=== PATIENT | female | born 1960 | race Caucasian/White ===

== ENCOUNTER → 2019-01-25 | Outpatient (CLI) | payer OTHER ==
[2019-01-26 11:08] LABS: Candida species (DNA Probe) Positive (NEGATIVE); G. vaginalis (DNA Probe) Negative (NEGATIVE); T. vaginalis (DNA Probe) Negative (NEGATIVE)
== END | disposition home or self-care (01) ==
LOC: LAB 15:54 → LAB SHORT 15:54
PROVIDERS: Obstetrics & Gynecology
DX: N76.0 Acute vaginitis (principal)
CPT/HCPCS: 87480; 87510; 87660

== ENCOUNTER → 2019-01-27 | Outpatient (CLI) | payer OTHER ==
[2019-01-27 15:44] LABS: U Benzodiazapine Screen DETECTED
[2019-01-27 15:45] LABS: U Amphetamine Screen Not Detected; U Barbituate Screen Not Detected; U Buprenorphine Screen Not Detected; U Cannabinoids Screen DETECTED; U Cocaine Screen Not Detected; U Methadone Screen Not Detected; U Methamphetamine Screen Not Detected; U Opiates Screen Not Detected; U Oxycodone Screen Not Detected; U Phencyclidine Screen Not Detected; U Propoxyphene Screen Not Detected
== END | disposition home or self-care (01) ==
LOC: LAB 13:55 → LAB SHORT 13:55
PROVIDERS: Registered Nurse Psychiatric/Mental Health
DX: Z51.81 Encounter for therapeutic drug level monitoring (principal); F31.32 Bipolar disorder, current episode depressed, moderate; Z79.899 Other long term (current) drug therapy

== ENCOUNTER 2019-07-28 10:17 | Emergency (ER) | payer OTHER ==
[~2019-07-28] VITALS: Ht 170.2 cm; Wt 79.4 kg
[2019-07-28] MEDS ORDERED: ALBU90OI INH (12:11)
[2019-07-28] MEDS ORDERED: Vibramycin100 MG PO (12:11)
[2019-07-28] MEDS ORDERED: Prednisone20 MG PO (12:11)
== END 2019-07-28 12:33 | disposition home or self-care (01) ==
LOC: ER 10:17
DX: J20.9 Acute bronchitis, unspecified (principal); F17.200 Nicotine dependence, unspecified, uncomplicated
CPT/HCPCS: 71046; 94640; 99283-25; J7512

== ENCOUNTER 2020-02-09 23:42 | Observation (INO) | payer OTHER ==
[~2020-02-09] VITALS: Ht 175.3 cm; Wt 74.3 kg
[~2020-02-09 23:42] MED LIST: ALBU90OI INH; Ativan1 MG PO; CARV3.125 PO; Crestor20 MG; DULO60 PO; ESTRADIOL2 MG; GABA800 PO; HYDPAM50; LISI5 PO; Lasix20 MG PO; PANT40 PO; POTA10T; PRAZ5; PROG100; Prednisone20 MG PO; TRAZ100; Vibramycin100 MG PO
[2020-02-10 00:31] LABS: BASOPHILS ABSOLUTE AUTO 0.01 K/mm3 (0.00-0.23); BASOPHILS PERCENT AUTO 0 % (0-2); EOSINOPHILS ABSOLUTE AUTO 0.15 K/mm3 (0.00-0.68); EOSINOPHILS PERCENT AUTO 2 % (0-6); Hematocrit 42.4 % (33.0-51.0); Hemoglobin 14.1 g/dL (11.5-16.0); IMMATURE GRAN ABSOLUTE AUTO 0.03 K/mm3 (0.00-0.10); IMMATURE GRAN PERCENT AUTO 1 % (0-1); LYMPHOCYTES ABSOLUTE AUTO 1.95 K/mm3 (0.84-5.20); LYMPHOCYTES PERCENT AUTO 30 % (21-46); MONOCYTES ABSOLUTE AUTO 0.37 K/mm3 (0.16-1.47); MONOCYTES PERCENT AUTO 6 % (4-13); Mean Corpuscular HGB 30.3 pg (26.0-34.0); Mean Corpuscular HGB Conc 33.3 g/dL (31.5-36.5); Mean Corpuscular Volume 91 fL (80-100); Mean Platelet Volume 10.4 fL (9.1-12.4); NEUTROPHILS ABSOLUTE AUTO 3.95 K/mm3 (1.96-9.15); NEUTROPHILS PERCENT AUTO 61 % (41-73); Platelet Count 230 K/mm3 (150-400); RDW Coefficient Variation 13.8 % (11.7-14.2); RDW Standard Deviation 46.8 fL (35.1-46.3); Red Blood Cell Count 4.65 M/mm3 (3.80-5.20); White Blood Cell Count 6.46 K/mm3 (4.00-11.30)
[2020-02-10 00:59] LABS: Source, Urine Voided
[2020-02-10 01:00] LABS: Alanine Aminotransfer (ALT/SGP 13 U/L (12-78); Albumin, Blood 3.8 g/dL (3.4-5.0); Albumin/Globulin Ratio 1.1 (0.8-1.8); Alk Phos 64 U/L (50-136); Anion Gap 4 mmol/L (6-16); Aspartate Aminotrans (AST/SGOT 16 U/L (12-37); Bilirubin, Total 0.4 mg/dL (0.1-1.0); Blood Urea Nitrogen 19 mg/dL (8-24); Bun/Creatinine Ratio 23.3 (12.0-20.0); CO2, Blood 31 mmol/L (21-32); Calcium, Blood 8.8 mg/dL (8.5-10.1); Chloride, Blood 103 mmol/L (98-108); Creatinine, Blood 0.82 mg/dL (0.40-1.00); Globulin, Blood 3.6 g/dL (2.2-4.0); Glomerular Filtration Rate >60 (60-); Glucose, Blood 155 mg/dL (70-99); Potassium, Blood 3.5 mmol/L (3.5-5.5); Sodium, Blood 138 mmol/L (136-145); Thyroid Stimulating Hormone 0.871 uIU/mL (0.360-4.800); Total Protein, Blood 7.4 g/dL (6.4-8.2); Troponin I <0.015 ng/mL (0.000-0.040)
[2020-02-10 01:01] LABS: Bilirubin, Urine Neg (Neg); Blood, Urine Neg (Neg); Glucose Qualitative, Urine Neg (Neg); Ketones, Urine Neg (Neg); Leukocyte Esterase, Urine Neg (Neg); Nitrite, Urine Neg (Neg); Protein, Urine 1+ (Neg); Urobilinogen, Urine NORM (Normal)
[2020-02-10 01:03] LABS: Appearance, Urine Clear (Clear); Color, Urine Yellow (P-Yellow)
[2020-02-10 01:17] LABS: U Amphetamine Screen Not Detected; U Barbituate Screen Not Detected; U Benzodiazapine Screen DETECTED; U Methamphetamine Screen Not Detected
[2020-02-10 01:18] LABS: U Buprenorphine Screen Not Detected; U Cannabinoids Screen Not Detected; U Cocaine Screen Not Detected; U Methadone Screen Not Detected; U Opiates Screen Not Detected; U Oxycodone Screen Not Detected; U Phencyclidine Screen Not Detected; U Propoxyphene Screen Not Detected
[2020-02-10 01:34] LABS: Base Excess Venous 2.1 mmol/L; Bicarbonate Venous 25.9 mmol/L (24.0-30.0); PCO2 Venous 45.8 mmHg (38-42); PO2 Venous 157 mmHg (38-42); pH Blood Venous 7.38 (7.34-7.37)
[2020-02-10 01:40] LABS: Magnesium, Blood 2.3 mg/dL (1.6-2.4)
--- NOTE | 2020-02-10 02:41 | NUR ---
REECEIVED PATIENT FROM ER VIA STRETCHER. PATIENT LIFTED TO ICU BED AND ATTACHED TO MONITOR. PATIENT DROWSY; NEEDS REPEATED VERBAL STIMULATION TO STAY AWAKE. PATIENT ORIENTED X 4; FOLLOWS COMMANDS, THEN BACK TO SLEEP. UNABLE TO COMPLETE ADMISSION HISTORY DUE TO PATIENT'S DROWSINESS. IV WITH NS INFUSING AT 100CC/HR VIA PIV TO LEFT HAND; SALINE LOCK TO RIGHT FOREARM. BED RAILS UP X 3; BED LOCKED AND IN LOW POSITION; CALL ENRIQUEZ IN REACH; BED ALARM ON.
[2020-02-10 05:43] LABS: BASOPHILS ABSOLUTE AUTO 0.01 K/mm3 (0.00-0.23); BASOPHILS PERCENT AUTO 0 % (0-2); EOSINOPHILS ABSOLUTE AUTO 0.08 K/mm3 (0.00-0.68); EOSINOPHILS PERCENT AUTO 1 % (0-6); Hematocrit 37.2 % (33.0-51.0); Hemoglobin 12.2 g/dL (11.5-16.0); IMMATURE GRAN ABSOLUTE AUTO 0.02 K/mm3 (0.00-0.10); IMMATURE GRAN PERCENT AUTO 0 % (0-1); LYMPHOCYTES ABSOLUTE AUTO 1.68 K/mm3 (0.84-5.20); LYMPHOCYTES PERCENT AUTO 25 % (21-46); MONOCYTES ABSOLUTE AUTO 0.44 K/mm3 (0.16-1.47); MONOCYTES PERCENT AUTO 7 % (4-13); Mean Corpuscular HGB 30.3 pg (26.0-34.0); Mean Corpuscular HGB Conc 32.8 g/dL (31.5-36.5); Mean Corpuscular Volume 92 fL (80-100); Mean Platelet Volume 10.3 fL (9.1-12.4); NEUTROPHILS PERCENT AUTO 66 % (41-73); Platelet Count 190 K/mm3 (150-400); RDW Standard Deviation 47.8 fL (35.1-46.3); Red Blood Cell Count 4.03 M/mm3 (3.80-5.20); White Blood Cell Count 6.63 K/mm3 (4.00-11.30)
[2020-02-10 06:06] LABS: Alanine Aminotransfer (ALT/SGP 10 U/L (12-78); Albumin, Blood 2.9 g/dL (3.4-5.0); Albumin/Globulin Ratio 1.1 (0.8-1.8); Alk Phos 50 U/L (50-136); Anion Gap 5 mmol/L (6-16); Aspartate Aminotrans (AST/SGOT 11 U/L (12-37); Bilirubin, Total 0.5 mg/dL (0.1-1.0); Blood Urea Nitrogen 16 mg/dL (8-24); CO2, Blood 27 mmol/L (21-32); Calcium, Blood 7.7 mg/dL (8.5-10.1); Chloride, Blood 111 mmol/L (98-108); Globulin, Blood 2.7 g/dL (2.2-4.0); Glomerular Filtration Rate >60 (60-); Glucose, Blood 107 mg/dL (70-99); Potassium, Blood 4.1 mmol/L (3.5-5.5); Sodium, Blood 143 mmol/L (136-145); Total Protein, Blood 5.6 g/dL (6.4-8.2)
--- NOTE | 2020-02-10 06:25 | NUR ---
SHIFT SUMMARY: PATIENT SLEEPING SINCE ARRIVAL TO UNIT. PATIENT AWAKENS TO VERBAL STIMULI; ANSWERS QUESTIONS APPROPRIATELY AND FOLLOWS COMMANDS, THEN BACK TO SLEEP. MAP >60. RHYTHM: SINUS SIMON, RATE 50-60'S. AFEBRILE. IV WITH NS INFUSING AT 100CC/HR VIA PIV TO LEFT HAND. LABS DRAWN. CONTINUE CURRENT POC. AWAITING DAY SHIFT RN FOR HANDOFF.
--- NOTE | 2020-02-10 07:06 | NUR ---
ASSUMED CARE RECEIVED REPORT FROM NOC RN. PT IS WAKING UP AND IS ALERT&ORIENTED TO SELF, SURROUNDINGS, AND SITUATION. BP IS SOFT BUT MAP > 60, SINUS SIMON HR 50-60s. ON ROOM AIR. REPOSITIONING SELF. SHE IS STILL SLIGHTLY LETHARGIC, BUT APPEARS TO BE WAKING UP MORE AND MORE. BED LOW AND LOCKED. CALL LIGHT WITHIN REACH.
[2020-02-10] MEDS ORDERED: K-TAB ER20 ME1 PO (08:41)
[2020-02-10] MEDS ORDERED: PRAZ5 PO (08:42)
[2020-02-10] MEDS ORDERED: LATUDA20 MG PO (08:43)
[2020-02-10] MEDS ORDERED: PROG100 PO (09:24)
--- NOTE | 2020-02-10 09:46 | NUR ---
UPDATE CURRENTLY PT STATES SHE HAS NO CP, SOB, OR NAUSEA. SHE HAS NO VISIBLE SWELLING, BUT STATES SHE HAS A LITTLE BIT OF NUMBNESS IN HER FINGERS. LUNGS SOUND CLEAR. STABLE VITALS, WITH SINUS RHYTHM, AND SOFT BPs (MAP > 60). STRONG PULSES, WARM EXTREMETIES, GOOD COLOR TO SKIN. PT STATES SHE HAS HAD THESE DIZZY SPELLS FOR A WHILE NOW (EVER SINCE SHE TOOK LATUDA). SHE ALSO STATES ITS AFTER SHE TAKES THAT AND HER OTHER MEDS AT NIGHT. PT TALKS ABOUT HAVING A SCHEDULED ANGIO WITH DR. PETERSON, AND THAT SHE HAS BEEN SEEING HIM REGARDING HER HEART. SHE HAD AN ECHO IN AUGUST 2019 SHOWING SOME DIASTOLIC DYSFUNCTION, EF OF 55%. SHE STATES SHE HAD PROBLEMS WITH HAVING TOO MUCH "...FLUID IN MY CHEST." DR. MICHAEL SAW PT AND WILL CONSIDER CARDIO CONSULT, SHE WANTS ORTHOSTATIC BPs TO BE TAKEN, AND STATES ITS OKAY FOR PT TO HAVE A CARDIAC DIET. I CONFIRMED MED LIST WITH PT, AND DR. MICHAEL WILL TAKE A LOOK AT ALL THE MEDS FOR POSSIBLE INTERACTIONS AND TO FIGURE OUT WHICH ONES WE SHOULD RESTART WHILE SHE IS IN HERE. BED LOW AND LOCKED. CALL LIGHT WITHIN REACH.
--- NOTE | 2020-02-10 12:08 | NUR ---
UPDATE DR. MICHAEL ASKED ME TO DO ORTHOSTATIC BPs - LYIN/51, 65; SITTIN/51, 68; STANDIN/57, 66 NEXT, SHE ASKED ME TO BOLUS 250 ML AND THEN CHECK HER BP. AFTER BOLUS: 100/52, 68 FINALLY, WE DID ANOTHER 250 ML BOLUS, ALONG WITH HAVING THE PATIENT AMBULATE ACROSS THE UNIT AND BACK. HER BP INCREASED TO: 125/58, 87. PT STATES SHE FEELS MUCH BETTER AND REALLY WANTS TO GO HOME. DR. MICHAEL AWARE.
--- NOTE | 2020-02-10 12:30 | NUR ---
Initial palliative care consult: Geno is a 59 year old with a history of neuropathy, GERD, HTN. Nursing consulted PC RN as pt is wanting to be a DNR and to fill out a POLST and AD. Geno is in the ICU with Cedric, her fiance, at her side. She states that she has experienced being intubation and that she would not want to ever have that happen again. She is very clear that if her time comes to pass away that she would not want to have any resusitation efforts. Reviewed POLST form, full code vs. DNR and treatment options. She has chosen to be DBR with limited interventions at this time. Reviewed AD packet with Geno and Cedric. They asked questions and Geno states that she would like to take the AD home and talk about her wishes before filling it out. Geno named Cedric, her fiance, and Toni, her brother as emergency contacts on her POLST form. POLST form reviewed and signed by Geno. Spoke with Dr. Fields who will place DNR order in the computer and sign pt's POLST prior to her planned discharge later today. Completed and signed (Pt and MD) POLST copy to chart and medical records. Copy also faxed to [place] POLST Registry.
== END 2020-02-10 13:00 | disposition home or self-care (01) ==
LOC: ER 23:42 → ICUW 23:43
PROVIDERS: Emergency Medicine; ADMIT Internal Medicine
DX: G92 Toxic encephalopathy (principal); I95.9 Hypotension, unspecified; R53.83 Other fatigue; K21.9 Gastro-esophageal reflux disease without esophagitis; F41.9 Anxiety disorder, unspecified; G62.9 Polyneuropathy, unspecified; I10 Essential (primary) hypertension; F17.200 Nicotine dependence, unspecified, uncomplicated; Z88.5 Allergy status to narcotic agent; Z79.899 Other long term (current) drug therapy
CPT/HCPCS: 36415; 70450; 71045; 80053; 82803; 83605; 83735; 83880; 84443; 84484; 85025; 93005; 93010; 96361; 96374; 96375; 99285-25; G0378; J2310; J2405; J7030; P9612

== ENCOUNTER → 2020-04-24 | Outpatient (CLI) | payer OTHER ==
[~2020-04-24] MED LIST changes: +K-TAB ER20 ME1 PO; +LATUDA20 MG PO; +PRAZ5 PO; +PROG100 PO
[2020-04-26 14:05] LABS: Candida species (DNA Probe) Negative (NEGATIVE); G. vaginalis (DNA Probe) Negative (NEGATIVE); T. vaginalis (DNA Probe) Negative (NEGATIVE)
== END | disposition home or self-care (01) ==
LOC: LAB 16:44 → LAB SHORT 16:44
PROVIDERS: Family Medicine
DX: N89.8 Other specified noninflammatory disorders of vagina (principal)
CPT/HCPCS: 87480; 87510; 87660